=== PATIENT | female | born 1995 | race Caucasian/White ===

== ENCOUNTER → 2018-01-18 | Outpatient (CLI) | payer BC ==
--- NOTE | 2018-01-18 14:26 | DIAGNOSTIC IMAGING REPORT ---
TEMPORAL ORB/SELLA/TEMP W/O CLINICAL HISTORY: 22 years-old Female presenting with H92.09 Pain of mastoid region Temporal bone CT for pain over left, palpable lump for a few weeks. TECHNIQUE: Multidetector CT of the temporal bones was performed without the use of intravenous contrast. IV contrast: None. A dose lowering technique was used consistent with the principles of ALARA (as low as reasonably achievable). COMPARISON: None. CT DOSE (mGy.cm): The estimated cumulative dose is 639.69 mGy.cm. FINDINGS: [employer] M[employer]ing [employer] Operator topogram: Unremarkable. A marker is in place in the left postauricular region. Mild thickening of the subjacent musculature and fascia, nonspecific. No subjacent osseous changes. No focal fluid collection in the subcutaneous tissues to suggest abscess. No fat infiltration to suggest inflammatory change. Polypoid mucosal thickening in the left maxillary sinus. Remainder of the visualized paranasal sinuses clear. Mastoid air cells and middle ears clear. Middle ear ossicles intact. Inner ears structures intact. No bony remodeling of the internal auditory canals. The external auditory canals are clear. Temporomandibular joints intact. No advanced degenerative change of the TMJs. Craniocervical junction normal. Limited intracranial evaluation within normal limits. Orbits normal. IMPRESSION: 1. At the site of clinical concern, mild thickening of the subjacent musculature and fascia, nonspecific. Symptoms may be musculoskeletal in etiology. No fluid collection or inflammatory change. No osseous erosion or evidence of mastoiditis. 2. Normal CT examination of the temporal bones. Electronically signed by: Narendra Dailey M.D. 01/18/2018 2:24 PM Dictated Date/Time: 01/18/2018 2:19 PM
== END | disposition home or self-care (01) ==
LOC: C.CTS 14:08
PROVIDERS: ATTEND Internal Medicine
DX: H92.09 Otalgia, unspecified ear (principal)

== ENCOUNTER → 2018-04-18 | Outpatient (CLI) | payer BC ==
[2018-04-18 12:24] LABS: BASO % 0.3 %; BASO ABS # 0.02 K/uL (0-0.2); EOS % 1.5 %; EOS ABS # 0.09 K/uL (0-0.5); HEMATOCRIT 39.8 % (37-47); HEMOGLOBIN 13.6 g/dL (12.0-16.0); IG# 0.01 K/uL (0.00-0.02); LYMPH % 26.2 %; LYMPH ABS # 1.55 K/uL (1.2-3.4); MEAN CELL VOLUME 86.5 fL (80-100); MEAN CORPUSCULAR HEMOGLOBIN 29.6 pg (25-34); MEAN CORPUSCULAR HGB CONC 34.2 g/dl (32-36); MEAN PLATELET VOLUME 12.8 fL (7.4-10.4); MONO % 7.6 %; MONO ABS # 0.45 K/uL (0.11-0.59); NEUT % 64.2 %; NEUT ABS # 3.79 K/uL (1.4-6.5); PLATELET COUNT 204 K/uL (130-400); RED CELL DISTRIBUTION WIDTH CV 12.4 % (11.5-14.5); WHITE BLOOD COUNT 5.91 K/uL (4.8-10.8)
[2018-04-18 12:37] LABS: ALKALINE PHOSPHATASE 55 U/L (45-117); ALT/SGPT 16 U/L (12-78); AST/SGOT 9 U/L (15-37); BLOOD UREA NITROGEN 11 mg/dl (7-18); CALCIUM 8.6 mg/dl (8.5-10.1); CARBON DIOXIDE 24 mmol/L (21-32); CREATININE 0.86 mg/dl (0.60-1.20); GLUCOSE 82 mg/dl (70-99); POTASSIUM 4.2 mmol/L (3.5-5.1); SODIUM 137 mmol/L (136-145); TOTAL PROTEIN 7.2 gm/dl (6.4-8.2)
== END | disposition home or self-care (01) ==
LOC: C.LABBFT 09:53
PROVIDERS: ATTEND Physician Assistant
DX: H92.09 Otalgia, unspecified ear (principal); M54.81 Occipital neuralgia